=== PATIENT | male | born 1955 | race Caucasian/White ===

== ENCOUNTER → 2024-01-05 08:15 | Outpatient (REF) | payer OTHER, SELFPAY | LOC: DHCBC HW 08:15 | PROVIDERS: ATTENDING PHYSICIAN Internal Medicine; FAMILY PHYSICIAN Internal Medicine | DX: I77.810 Thoracic aortic ectasia (principal); I10 Essential (primary) hypertension; I25.10 Atherosclerotic heart disease of native coronary artery without angina pectoris | CPT/HCPCS: 93306 ==

== ENCOUNTER 2024-05-12 09:43 | Emergency (ER) | payer OTHER, SELFPAY ==
[2024-05-12 09:56] VITALS: BP 117/75
--- NOTE | 2024-05-12 11:06 | ED.GENMED ---
History of Present Illness
General
Chief Complaint: Dizziness
Source: patient
Exam Limitations: none
Time Seen by Provider: 05/12/24 10:20
Nursing documentation reviewed up to this point in time: agreed with
Travel History
Have you had any contact with someone who has COVID-19?: No
Do you have any symptoms of coronavirus? Fever > 100 degrees, chills, cough, shortness of breath, sore throat, loss of taste or smell, muscle aches, or headache?: No
History of Present Illness
History of Present Illness:
68-year-old male with past medical history of hypertension high cholesterol recent retinal surgery at the end of January presents to the ER for evaluation of dizziness. Patient reports he was up several times throughout the night urinating(which is
nml for him ) and describes feeling very dizzy the room spinning sensation. This morning it worsened slightly worse with position change, getting up. He has had this mildly in the past several times but has never had it evaluated by physician.
He denies any associated headache.
He does not feel as worse as he did but feels slightly off. He denies any recent trauma. Denies any recent chiropractic manipulation. He is on blood thinners.
Past History
Past History
ED Past Medical History: Other (Kidney stones, lumbar disc disease)
ED Past Surgical History: Orthopedic (Lumbar discectomy 2013) and Urological (Ureteric stone removal)
Social History
Tobacco: Non-smoker
Personal:
Living: with family
Employment: Employed
Family History
Family History: Other (Noncontributory)
Phy Exam
General Physical Exam
General Presentation: no apparent distress
General age: appears stated age
General Skin: warm and dry
General Habitus: normal
General Mental: alert
General Hydration: appears well hydrated
Eye Exam
Eye Exam: PERRL, EOMI and other (no nystagmus b/l )
Eye Exam General: PERRL: bilateral and EOM intact: bilateral
Pupil Exam: Bilateral: round and reactive
Cardiovascular Exam
Cardiovascular Exam: regular rate/rhythm, no murmur and normal peripheral pulses
Pulmonary Exam
Pulmonary Exam: lungs clear and no respiratory distress
Neurological Exam
Neurological Exam: alert, oriented x3, no motor deficits, no sensory deficits and speech normal
NIH Stroke Score
Level of Consciousness: 0 - Alert
LOC questions: 0-Answers both correctly
LOC Commands: 0-Performs both correctly
Best Gaze: 0-Normal
Visual Ramirez: 0=Normal, no visual loss
Facial palsy: 0=Normal, symmetrical
Motor - Right Arm: 0=No drift 10 seconds
Motor - Left Arm: 0=No drift 10 seconds
Motor - Right Le-No drift 5 seconds
Motor - Left Le-No drift 5 seconds
Limb Ataxia: 0-Absent
Sensation: 0-Normal
Best Language: 0-No aphasia
Dysarthria: 0-Normal
Extinction and Inattention: 0-No abnormality
Total Score:: 0
[place] Coma Scale
Eye Opening: Spontaneous
Verbal Response: Oriented
Motor Response: Obeys Commands
GCS Total Score: 15
Cerebellar
Cerebellar Function: normal finger to nose
Musculoskeletal Exam
Musculoskeletal Exam: full ROM
Skin Exam
Skin Exam: normal color and warm/dry
Psychiatric Exam
Psychiatric Exam: normal mood/affect
Course
Orders/Labs/Results
Orders:
Orders
05/12/24 10:01
Electrocardiogram (*1) Urgent
Reason for Study: Vertigo / Dizzy
EKG- Treatment ONCE
05/12/24 11:05
Electrocardiogram (*1) Stat
Reason for Study: Abdominal Pain
CT Head W/o Iv Contrast Urgent
Comment:
Reason For Exam: vertigo
Cardiac Monitoring- Treatment ONCE
EKG- Treatment ONCE
IV Insert/Care/Rem.- Treatment PRN
05/12/24 11:06
Meclizine [Antivert] 25 mg PO NOW STA
05/12/24 11:17
Complete Blood Count/With Diff Urgent
Comprehensive Metabolic Panel Urgent
Abnormal Lab Results
05/12/24
11:17
RBC 4.58 L 10^6/uL
(4.70-6.10)
MCH 31.4 H pg
(27.0-31.0)
Absolute Monos (auto) 0.7 H 10^3/uL
(0.1-0.6)
BUN 25 H mg/dl
(9-20)
05/12/24 11:17
05/12/24 11:17
Vital Signs
Initial and Last Documented VS:
Initial Vital Signs
Temp Pulse Resp BP Pulse Ox
98.2 F 62 16 117/75 98
05/12/24 09:56 05/12/24 09:56 05/12/24 09:56 05/12/24 09:56 05/12/24 09:56
Last Documented Vital Signs
Temp Pulse Resp BP Pulse Ox
98.2 F 49 12 117/81 100
05/12/24 09:56 05/12/24 13:00 05/12/24 13:00 05/12/24 13:00 05/12/24 13:00
MDM/Problems Addressed
MDM/Problems Addressed:
Symptoms are consistent with benign positional vertigo. Patient describes room spinning sensation with change of position. Patient has had this intermittently in the past however today it lasted longer than normal. This was never evaluated by his
family doctor. Patient denies any recent trauma no blood thinners. No recent chiropractor ambulation. Patient presented to the ER feeling better than he did prior to arrival no acute distress looks well CAT scan negative normal neurologic exam.
Ambulation normal will DC with meclizine and close outpatient follow-up family doctor
*Radiology
Radiology exam reviewed: radiology read reviewed
*Pulse Oximetry
Patient hypoxic: no
*EKG
Interpreted by ED Provider?: Yes
Heart Rate: 58
Rate: bradycardiac
Rhythm: sinus
Ischemia: no ischemia
*Critical Care Note
Total Time (30-74mins, 75-104mins- exclusive of procedures): Not Applicable
ED Attending Note
-
Portions of this chart may have been created with voice recognition software.� Occasional wrong word or��sound alike� substitutions may have occurred due to the inherent limitations of voice recognition software.
Discharge Plan
Departure
Patient Disposition: Home (Routine Discharge)
Date of Disposition: 05/12/24
Time of Disposition: 13:42
Patient with high blood pressure during this ER visit?: No
Condition: Fair
Covid-19: Not Applicable
Discharge Problem:
Benign positional vertigo
Instructions: Vertigo (a Type of Dizziness) (DC)
Prescriptions:
New
meclizine 25 mg tablet
25 mg PO TID PRN (Reason: motion sickness) Qty: 10 0RF
No Action
saw palmetto 80 MG capsule
2 capsules PO DAILY
levofloxacin 500 MG tablet
500 mg PO DAILY Qty: 2 0RF
acetaminophen 325 MG tablet
1 - 2 tablets PO Q6HPRN PRN (Reason: pain) Qty: 0 0RF
Rx Instructions:
one to two tablets every 6 hours prn pain
tamsulosin 0.4 MG capsule
0.4 mg PO DAILY Qty: 14 0RF
Rx Instructions:
one daily for 14 days
Referrals:
En Nichols MD [Family Provider] -
Activity Restrictions/Additional Instructions:
A prescription for meclizine was sent to your pharmacy take as directed.
Follow-up with family doctor in the next several days for reevaluation of symptoms. Return if any worsening of symptoms including worsening dizziness headaches or any other further concerns
Interventions
Interventions:
*Neglect/Abuse Screening Last Done: 05/12/24 11:24
*ED COVID-19 Vaccine History Last Done: 05/12/24 10:00
ED- Neurological Assessment Last Done: 05/12/24 11:31
Discharge Date and Time
Print Language: CHINESE
[2024-05-12 11:10] VITALS: BMI 22.8
[2024-05-12] MEDS: ANTIVERT 25 MG PO (11:10)
[2024-05-12 11:30] LABS: % Basophils 0.8 % (0-2); % Immature Granulocytes 0.4 % (0-0.5); % Lymphocytes 21.5 % (20.5-51.1); % Neutrophils 64.3 % (42.2-75.2); Absolute Basophils 0.1 10^3/uL (0-0.2); Absolute Eosinophils 0.3 10^3/uL (0-0.7); Absolute Lymphocytes 1.6 10^3/uL (1.2-3.4); Absolute Monocytes 0.7 10^3/uL (0.1-0.6); Absolute Neutrophils 4.7 10^3/uL (1.4-6.5); Hematocrit 39.6 % (39.0-52.0); Hemoglobin 14.4 g/dL (13.0-18.0); Mean Corp Hgb Conc. 36.4 g/dL (33.0-37.0); Mean Corpuscular Hgb 31.4 pg (27.0-31.0); Mean Corpuscular Volume 86.5 fL (80.0-94.0); Mean Platelet Volume 10.2 fL (7.4-10.4); Nucleated Red Blood Cells % 0 % (-); Platelet Count 203 10^3/uL (130-400); Red Blood Cell Count 4.58 10^6/uL (4.70-6.10); Red Cell Dist. Width 11.8 % (11.5-14.5); White Blood Cell Count 7.3 10^3/uL (4.8-10.8)
[2024-05-12 11:42] LABS: ALT (SGPT) 33 U/L (0-50); AST (SGOT) 30 U/L (17-59); Albumin 4.1 g/dl (3.5-5.0); Alkaline Phosphatase 61 U/L (38-126); Blood Urea Nitrogen 25 mg/dl (9-20); Calcium 9.5 mg/dl (8.4-10.2); Carbon Dioxide 30 mmol/L (22-30); Chloride 102 mmol/L (98-107); Estimated Creatinine Clearance 86 ml/min; Glucose 96 mg/dl (70-99); Sodium 137 mmol/L (135-145); Total Bilirubin 0.8 mg/dl (0.2-1.3); Total Protein 6.5 g/dl (6.3-8.2); eGFR > 60.00
[2024-05-12 11:51] VITALS: BP 114/74
[2024-05-12 12:00] VITALS: BP 114/82
[2024-05-12 12:25] LABS: Potassium 5.1 mmol/L (3.5-5.1)
[2024-05-12 13:00] VITALS: BP 117/81
== END 2024-05-12 13:56 | disposition home or self-care (01) ==
LOC: EMR 09:43
PROVIDERS: Nurse Practitioner; EMERGENCY PHYSICIAN Emergency Medicine; FAMILY PHYSICIAN Internal Medicine
DX: H81.10 Benign paroxysmal vertigo, unspecified ear (principal); I10 Essential (primary) hypertension; E78.00 Pure hypercholesterolemia, unspecified; Z79.01 Long term (current) use of anticoagulants; Z87.442 Personal history of urinary calculi; Z88.1 Allergy status to other antibiotic agents
CPT/HCPCS: 99284; 70450; 80053; 85025; 93005

== ENCOUNTER → 2024-10-18 07:56 | Outpatient (REF) | payer OTHER, SELFPAY | LOC: HWRAD 07:56 | PROVIDERS: ATTENDING PHYSICIAN Urology; FAMILY PHYSICIAN Internal Medicine | DX: Z87.442 Personal history of urinary calculi (principal) | CPT/HCPCS: 76775 ==